=== PATIENT | male | born 1945 | race Caucasian/White ===

== ENCOUNTER 2018-11-27 08:33 | Day surgery (SDC) | payer MEDICARE, BC ==
[2018-11-27] MEDS ORDERED: Dextrose 5%-Lactated Ringers 1,000 ML IV SCH (09:15)
[2018-11-27] MEDS ORDERED: Cyanocobalamin (Vitamin B12) 1,000 MCG/ML SDV IM ONE (09:30)
[2018-11-27] MEDS ORDERED: Ampicillin/Sulbactam Na 1.5 GM in Sodium Chloride 0.9% 50 ML IV ONE (10:15)
[2018-11-27] MEDS ORDERED: MVI, Adult with Vitamin K 10 ML, Thiamine 100 MG, Chromium/Copper/Mang/Zinc 1 ML in Dex... IV ONE ×4 (10:15)
[2018-11-27] MEDS ORDERED: Glycopyrrolate 0.2 MG/ML 2 ML SDV IVPUSH ONE (10:15)
[2018-11-27] MEDS ORDERED: Lactated Ringers 1,000 ML IV ONE (10:21)
[2018-11-27] MEDS ORDERED: Propofol 200 MG/20 ML SDV ONE (11:37)
[2018-11-27] MEDS ORDERED: fentaNYL 100 MCG/2 ML SDV ONE (11:37)
[2018-11-27] MEDS ORDERED: Pantoprazole 40 MG Vial IVPUSH ONE (11:52)
[2018-11-27 13:27] VITALS: BP 100/59
--- NOTE | 2018-12-01 14:09 | OR ---
DATE OF PROCEDURE: 11/27/2018 PREOPERATIVE DIAGNOSIS: Dysphagia status post Josefina-en-Y gastric bypass. POSTOPERATIVE DIAGNOSIS: Dysphagia status post Josefina-en-Y gastric bypass with large marginal ulcer. PROCEDURE: Upper GI endoscopy with biopsy of gastric pouch for CLOtest. ANESTHESIA: IV sedation. INDICATION FOR PROCEDURE: This is a 73-year-old status post conversion of a band status to Josefina-en-Y gastric bypass in May and subsequently underwent stent placement for coronary artery disease and was placed on Plavix. He had been on omeprazole prior to that, but this medication was contraindicated with use of the Plavix, so he is not presently on any antisecretory medication. Plan is to proceed with upper GI endoscopy with biopsies and/or dilation as indicated. Potential risks including bleeding and perforation were discussed, and the patient wishes to proceed. DETAILS OF PROCEDURE: The patient was taken to the operating room, placed in a left lateral decubitus position. IV sedation was administered after which the upper GI endoscope was passed orally through the length of the esophagus and into the gastric pouch, and from there through the gastrojejunostomy roughly 20 cm into the Josefina limb. The esophageal and gastric pouch areas were unremarkable. At the gastrojejunostomy, no stricturing was present, but the patient had a quite large marginal ulcer. It was located anteriorly and occupied roughly quarter of the circumference of the area around and distal to the gastrojejunostomy. This was covered with fibrinous exudate. It appeared to be fairly deep, but was not associated with any bleeding. The remainder of the visualized portion of the Josefina limb was unremarkable. At this point, biopsies were obtained from the gastric pouch, sent for CLOtest for H. pylori. Minimal bleeding from the biopsy site was seen and the procedure then concluded. The patient will be given Protonix 40 mg IV in the recovery room and then begin on Protonix 40 mg b.i.d. x2 weeks and then 40 mg daily. He will be following up with Violette Danielle in roughly 2 weeks. Obey Garcia MD /[id number]
== END 2018-11-27 14:15 | disposition home or self-care (01) ==
LOC: JP.SDS 08:33
PROVIDERS: ATTEND Surgery
DX: R13.10 Dysphagia, unspecified (principal); K28.9 Gastrojejunal ulcer, unspecified as acute or chronic, without hemorrhage or perforation; I10 Essential (primary) hypertension; E11.40 Type 2 diabetes mellitus with diabetic neuropathy, unspecified; I25.10 Atherosclerotic heart disease of native coronary artery without angina pectoris; G47.33 Obstructive sleep apnea (adult) (pediatric); Z99.89 Dependence on other enabling machines and devices; Z79.02 Long term (current) use of antithrombotics/antiplatelets; Z98.84 Bariatric surgery status; Z95.1 Presence of aortocoronary bypass graft; Z88.5 Allergy status to narcotic agent; Z88.8 Allergy status to other drugs, medicaments and biological substances
CPT/HCPCS: 43239; 87081; C9113; J0287; J2704; J3010; J3411; J3420; J3490; J7042; J7050; J7120